=== PATIENT | female | born 2000 ===

== ENCOUNTER 2024-01-24 20:40 | Outpatient (CLI) | payer OTHER ==
[2024-01-24 21:00] VITALS: BP 129/86; PULSE 103; RESP 18; TEMP 98; O2SAT 100
[2024-01-25] MEDS: OLANZapine 5 MG TABLET PO SCH (01:45)
[2024-01-25 08:37] VITALS: BP 133/89; PULSE 94; RESP 18; TEMP 98.5; O2SAT 99
[2024-01-25] MEDS ORDERED: OLAN5TAB52 PO (13:26)
== END 2024-01-25 15:24 | disposition home or self-care (01) ==
LOC: CSU 20:40
PROVIDERS: ATTEND Student in an Organized Health Care Education/Training Program
DX: F19.959 Other psychoactive substance use, unspecified with psychoactive substance-induced psychotic disorder, unspecified (principal); F12.90 Cannabis use, unspecified, uncomplicated; R45.851 Suicidal ideations; F41.9 Anxiety disorder, unspecified
CPT/HCPCS: 90839; 90840; Z7610